=== PATIENT | male | born 1980 | race American Indian/Alaskan Native ===

== ENCOUNTER 2020-04-15 00:15 | Emergency (ER) | payer SELFPAY ==
[2020-04-15 01:12] VITALS: BP 104/72
[2020-04-15] MEDS ORDERED: LIDOCAINE-MPF (1%) 10 MG/1 ML VIAL 5 ML INFILTRATI ONE (01:28)
[2020-04-15] MEDS ORDERED: DIPHtheria,PERTUSSIS(ACELL),TETANUS VACCINE/PF 0.5 ML VIAL IM ONE (02:21)
[2020-04-15] MEDS ORDERED: IBUPROFEN 600 MG TAB PO ONE (02:21)
--- NOTE | 2020-04-15 02:26 | Emergency Department Report ---
- General Chief Complaint: Wound/Laceration Stated Complaint: LACERATION TO RIGHT HAND Source: patient Mode of arrival: Ambulatory Limitations: No Limitations - History of Present Illness Initial Comments: Patient is a 39-year-old male with no past medical history presents to the ED with complaint of acute onset persistent painful bleeding distal right middle finger laceration on palmar side for the last 1 hour after he accidentally sliced his distal right middle finger when cutting meat to cook. Patient states that he is not up-to-date with his tetanus vaccinations. Patient denies numbness and tingling or weakness of right middle finger, dizziness, nausea and vomiting, shortness of breath, change in vision or fall. -: Sudden, hour(s) (1) Location: other (Distal right middle finger) Extremity Location: Right: Hand (Distal right middle finger laceration) Place: home Patient Tetanus UTD: No (Given during this visit) Context: accidental, sharp object use Associated Symptoms: pain. denies: loss of feeling/numbness, suspect foreign body present, unable to move injured part, weakness followed by dizziness, nausea/vomiting, fever - Related Data Previous Rx's Medication Instructions Recorded Last Taken Type Ibuprofen [Motrin] 800 mg PO Q8HR PRN #24 tablet 04/15/20 Unknown Rx cephALEXin [Keflex] 500 mg PO Q8HR #30 cap 04/15/20 Unknown Rx Allergies Allergy/AdvReac Type Severity Reaction Status Date / Time No Known Allergies Allergy Verified 04/15/20 00:19 ED Review of Systems ROS: Stated complaint: LACERATION TO RIGHT HAND Other details as noted in HPI Constitutional: denies: chills, fever Eyes: denies: eye pain, eye discharge, vision change ENT: denies: ear pain, throat pain Respiratory: denies: cough, shortness of breath, wheezing Cardiovascular: denies: chest pain, palpitations Endocrine: no symptoms reported Gastrointestinal: denies: abdominal pain, nausea, diarrhea Genitourinary: denies: urgency, dysuria Musculoskeletal: arthralgia (Distal right middle finger pain due to a bleeding laceration on palmar side). denies: back pain, joint swelling Skin: other (Bleeding laceration on distal right middle finger on palmar side). denies: rash, lesions Neurological: denies: headache, weakness, paresthesias Psychiatric: denies: anxiety, depression Hematological/Lymphatic: denies: easy bleeding, easy bruising ED Past Medical Hx - Past Medical History Previous Medical History?: No - Surgical History Past Surgical History?: No - Social History Smoking Status: Current Every Day Smoker Substance Use Type: Alcohol - Medications Home Medications: Home Medications Medication Instructions Recorded Confirmed Last Taken Type Ibuprofen [Motrin] 800 mg PO Q8HR PRN #24 tablet 04/15/20 Unknown Rx cephALEXin [Keflex] 500 mg PO Q8HR #30 cap 04/15/20 Unknown Rx ED Physical Exam - General Limitations: No Limitations General appearance: alert, in no apparent distress - Head Head exam: Present: atraumatic, normocephalic, normal inspection - Eye Eye exam: Present: normal appearance, PERRL, EOMI Pupils: Present: normal accommodation - ENT ENT exam: Present: normal exam, normal orophraynx, mucous membranes moist, TM's normal bilaterally, normal external ear exam - Neck Neck exam: Present: normal inspection, full ROM - Respiratory Respiratory exam: Present: normal lung sounds bilaterally. Absent: respiratory distress, wheezes, rales, rhonchi, chest wall tenderness, accessory muscle use, prolonged expiratory, other - Cardiovascular Cardiovascular Exam: Present: normal rhythm, tachycardia, normal heart sounds. Absent: systolic murmur, diastolic murmur, rubs, gallop - GI/Abdominal GI/Abdominal exam: Present: soft, normal bowel sounds. Absent: distended, tenderness, rebound, hyperactive bowel sounds, hypoactive bowel sounds - Extremities Exam Extremities exam: Present: normal inspection, full ROM, tenderness (Palpable distal right middle finger tenderness due to a bleeding 5 cm laceration on palmar side), normal capillary refill - Back Exam Back exam: Present: normal inspection, full ROM. Absent: tenderness, CVA tenderness (R), CVA tenderness (L), muscle spasm - Neurological Exam Neurological exam: Present: alert, oriented X3, CN II-XII intact, normal gait, reflexes normal - Psychiatric Psychiatric exam: Present: normal affect, normal mood - Skin Skin exam: Present: warm, dry, intact, normal color, other (Bleeding 5 cm laceration on distal right middle finger on palmar side with tenderness). Absent: rash ED Course Vital Signs 04/15/20 00:21 Temperature 98.0 F Pulse Rate 109 H Respiratory 16 Rate Blood Pressure 104/72 O2 Sat by Pulse 95 Oximetry - Laceration /Wound Repair Right Distal Finger Wound Location: upper extremity (Distal right middle finger laceration on palmar side) Wound Length (cm): 5 Wound's Depth, Shape: superficial, linear Wound Explored: contaminated Irrigated w/ Saline (ccs): 100 Betadine Prep?: Yes Anesthesia: 1% Lidocaine Volume Anesthetic (ccs): 5 Wound Debrided: extensive Wound Repaired With: sutures Suture Size/Type: 4:0, proline Number of Sutures: 13 Layer Closure?: No Progress: Patient tolerated the procedure well. The wound was cleaned thoroughly after suturing and dressed appropriately. Patient was discharged home on medications including prophylactic antibiotics and advised to follow-up with his primary care physician in 7 to 10 days for reevaluation. Patient was advised return to the ED immediately if symptoms get worse. Patient was otherwise advised to return to the ED or to his primary care physician in 12 to 14 days for suture removal. ED Medical Decision Making - Medical Decision Making This is a 39-year-old male with no past medical history presents to the ED with complaint of acute onset persistent painful bleeding distal right middle finger laceration on palmar side for the last 1 hour after he accidentally sliced his distal right middle finger when cutting meat to cook. Patient states that he is not up-to-date with his tetanus vaccinations. In the ED, patient is alert and oriented x3 and is not in distress. Patient was treated for pain in the ED and also given booster tetanus vaccinations. The distal right middle finger laceration was cleaned thoroughly and sutured per protocol. Patient tolerated the procedure well. After the procedure was complete the patient's suture to distal right middle finger wound was cleaned and dressed appropriately and the patient was discharged home on pain medications and prophylactic antibiotics. Patient was advised to return to the ED immediately if symptoms get worse. Patient was otherwise advised to follow-up with his primary care physician in 7 to 10 days for reevaluation, otherwise return to the ED or to the primary care physician in 12 to 14 days for suture removal. - Differential Diagnosis Puncture wound; laceration; abrasions; contusion Critical care attestation.: If time is entered above; I have spent that time in minutes in the direct care of this critically ill patient, excluding procedure time. ED Disposition Clinical Impression: Laceration of right middle finger w/o foreign body w/o damage to nail Qualifiers: Encounter type: initial encounter Qualified Code(s): S61.212A - Laceration without foreign body of right middle finger without damage to nail, initial encounter Disposition: - TO HOME OR SELFCARE Is pt being admited?: No Does the pt Need Aspirin: No Condition: Stable Instructions: Laceration Care, Adult, [id number], Sutured Wound Care, [id number] Additional Instructions: Take medication with food, drink plenty of fluids and follow-up with your primary care physician in 7 to 10 days for reevaluation. Return to the ED immediately if symptoms get worse. Otherwise return to the ED or to your primary care physician in 12 to 14 days for suture removal. Prescriptions: cephALEXin [Keflex] 500 mg PO Q8HR #30 cap Ibuprofen [Motrin] 800 mg PO Q8HR PRN #24 tablet PRN Reason: Pain , Severe (7-10) Referrals: PRIMARY CARE, [Primary Care Provider] - 3-5 Days Forms: Work/School Release Form(ED) Time of Disposition: 02:24 Print Language: [place]
== END 2020-04-15 03:07 | disposition home or self-care (01) ==
LOC: ED 00:15
DX: S61.212A Laceration without foreign body of right middle finger without damage to nail, initial encounter (principal); F17.200 Nicotine dependence, unspecified, uncomplicated; Z79.899 Other long term (current) drug therapy; W26.8XXA Contact with other sharp object(s), not elsewhere classified, initial encounter; Y93.89 Activity, other specified; Y92.89 Other specified places as the place of occurrence of the external cause; Y99.8 Other external cause status
CPT/HCPCS: 90471; 90715; 99282